=== PATIENT | female | born 1970 | race Caucasian/White ===

== ENCOUNTER 2024-01-08 11:41 | Emergency (ER) | payer MEDICAID ==
[~2024-01-08] VITALS: Ht 157.5 cm; Wt 65.8 kg
[2024-01-08 11:44] VITALS: BP 115/73; PULSE 94; RESP 16; TEMP 97.4; O2SAT 98
[2024-01-08] MEDS ORDERED: ACET500T99 PO (12:08)
[2024-01-08] MEDS ORDERED: GUAI473L41 PO (12:08)
[2024-01-08 12:15] VITALS: BP 117/76; PULSE 89; RESP 16; TEMP 97.4; O2SAT 98
== END 2024-01-08 12:15 | disposition home or self-care (01) ==
LOC: MED 11:41
DX: J06.9 Acute upper respiratory infection, unspecified (principal); B97.89 Other viral agents as the cause of diseases classified elsewhere; Z79.899 Other long term (current) drug therapy
CPT/HCPCS: 99282